=== PATIENT | male | born 1985 ===

== ENCOUNTER 2018-09-06 16:26 | Emergency (ER) | payer SELFPAY ==
[2018-09-06 16:43] VITALS: BP 121/83; PULSE 69; RESP 17; TEMP 98.9; O2SAT 97
[2018-09-06] MEDS ORDERED: Amoxicillin-Clav 875-125 mg Tab PO STA (17:07)
--- NOTE | 2018-09-06 17:26 | C.PDOC ---
History Of Present Illness 33 y/o male,w/no significant PMhx, presents to the ER for evaluation of lump to the left mid abdomen which has been present for the past 2 days. Patient states that he has not taken any medications for the pain. Patient reports that he has history of multiple cysts in chest. Denies having drainage from the area,rash, fever,chills, nausea, and vomiting. Time Seen by Provider: 09/06/18 16:59 Chief Complaint (Nursing): Abnormal Skin Integrity History Per: Patient History/Exam Limitations: no limitations Onset/Duration Of Symptoms: Days Current Symptoms Are (Timing): Still Present Severity: Moderate Past Medical History Reviewed: Historical Data, Nursing Documentation, Vital Signs Vital Signs: Last Vital Signs Temp 98.9 F 09/06/18 16:40 Pulse 69 09/06/18 16:40 Resp 17 09/06/18 16:40 BP 121/83 09/06/18 16:40 Pulse Ox 97 09/06/18 16:40 - Medical History PMH: No Chronic Diseases Surgical History: No Surg Hx Family History: States: No Known Family Hx - Social History Hx Alcohol Use: Yes Hx Substance Use: No - Immunization History Hx Tetanus Toxoid Vaccination: Yes Hx Influenza Vaccination: No Hx Pneumococcal Vaccination: No Review Of Systems Except As Marked, All Systems Reviewed And Found Negative. Constitutional: Negative for: Fever, Chills Gastrointestinal: Negative for: Nausea, Vomiting Skin: Positive for: Other (lump to left mid abdomen) Physical Exam - Physical Exam Appears: Non-toxic, No Acute Distress Skin: Warm, Dry, Other (6 x3 cm erythematous area of induration to left mid abdomen, increased warmth, tender to palpation, no streaking) Head: Atraumatic, Normacephalic Eye(s): bilateral: Normal Inspection Nose: Normal Oral Mucosa: Moist Neck: Supple Chest: Symmetrical, Other (multiple areas of hyperpigmentation along left chest wall) Cardiovascular: Rhythm Regular Respiratory: Normal Breath Sounds, No Rales, No Rhonchi, No Wheezing Gastrointestinal/Abdominal: Soft, Tenderness (tenderness to palpation over left mid abdomen), No Guarding, No Rebound Neurological/Psych: Oriented x3, Normal Speech ED Course And Treatment O2 Sat by Pulse Oximetry: 97 (RA) Pulse Ox Interpretation: Normal Medical Decision Making Medical Decision Making: Plan: --Augmentin PO --Motrin PO Disposition Counseled Patient/Family Regarding: Diagnosis, Need For Followup - Disposition Disposition: HOME/ ROUTINE Disposition Time: 17:24 Additional Instructions: AYO CABRERA, thank you for letting us take care of you today. Your provider was Sirena Duran MD and you were treated for ABSCESS ON LT SIDE OF ABDOMEN. The emergency medical care you received today was directed at your acute symptoms. If you were prescribed any medication, please fill it and take as directed. It may take several days for your symptoms to resolve. Return to the Emergency Department if your symptoms worsen, do not improve, or if you have any other problems. Please contact your doctor for a follow up appointment in 1-2 days. Bring any paperwork you were given at discharge with you along with any medications you are taking to your follow up visit. Our treatment cannot replace ongoing medical care by a primary care provider outside of the emergency department. Thank you for allowing the [facility] team to be part of your care today. Prescriptions: Amoxicillin/Clavulanate [Augmentin 875 MG-125 MG] 1 tab PO BID #19 tab Ibuprofen [Motrin Tab] 800 mg PO TID PRN #30 tab PRN Reason: Pain, Moderate (4-7) Instructions: Skin Abscess, Cellulitis (Skin Infection), Adult (DC) Forms: Espin[place] ([place]), General Discharge Instructions - POA Present On Arrival: None - Clinical Impression Clinical Impression: Abscess, Cellulitis - Scribe Statement The provider has reviewed the documentation as recorded by the Hay Toussaint Provider Attestation: All medical record entries made by the Brunaibjacqueline were at my direction and personally dictated by me. I have reviewed the chart and agree that the record accurately reflects my personal performance of the history, physical exam, medical decision making, and the department course for this patient. I have also personally directed, reviewed, and agree with the discharge instructions and disposition.
[2018-09-06] MEDS ORDERED: Amoxicillin-Clav 875-125 mg Tab PO ONE (17:38)
== END 2018-09-06 17:42 | disposition home or self-care (01) ==
LOC: C.ER 16:26
DX: L02.211 Cutaneous abscess of abdominal wall (principal); L03.311 Cellulitis of abdominal wall